=== PATIENT | male | born 2000 | race Caucasian/White ===

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

== ENCOUNTER 2019-03-14 16:46 | Emergency (ER) | payer OTHER ==
[~2019-03-14] VITALS: Ht 165.1 cm; Wt 85.2 kg
[~2019-03-14 16:46] MED LIST: CEPH-443 PO; HYDR-4011 PO; IBUP800T48 PO
[2019-03-14 16:51] VITALS: BP 149/82; PULSE 93; RESP 20; Ht 165.1 cm; Wt 85.2 kg
== END 2019-03-14 17:49 | disposition home or self-care (01) ==
LOC: FTE 16:46 → E/R 17:49
DX: K04.7 Periapical abscess without sinus (principal)
CPT/HCPCS: 99283